=== PATIENT | male | born 1995 | race Caucasian/White ===

== ENCOUNTER 2017-08-27 21:37 | Emergency (ER) | payer OTHER ==
[~2017-08-27] VITALS: Ht 180.3 cm; Wt 69.4 kg
[2017-08-27 21:46] VITALS: Ht 180.3 cm; Wt 69.4 kg
[2017-08-27 22:50] VITALS: BP 104/66
== END 2017-08-27 22:50 | disposition home or self-care (01) ==
LOC: ED 21:37
DX: S61.211A Laceration without foreign body of left index finger without damage to nail, initial encounter (principal); J45.909 Unspecified asthma, uncomplicated; W26.0XXA Contact with knife, initial encounter; Y93.89 Activity, other specified; Y99.8 Other external cause status; Y92.89 Other specified places as the place of occurrence of the external cause
CPT/HCPCS: J2001